=== PATIENT | female | born 1995 | race Caucasian/White ===

== ENCOUNTER 2020-07-24 17:29 | Emergency (ER) | payer MEDICAID, SELFPAY ==
[2020-07-24 17:33] VITALS: BP 138/78; PULSE 97; RESP 20; TEMP 36.8; O2SAT 97; BMI 25.9
--- NOTE | 2020-07-24 17:37 | EDS_ITS ---
HPI History of Present Illness Chief Complaint: Seizure Informant: patient Narrative Narrative: Patient presents after having a seizure. This occurred earlier in the day today. She has a known history of seizures. She is on Keppra, 500 mg twice daily. She states that she has been getting plenty of sleep and does not know any known triggers. She has been medication compliant. She had a seizure last about a year ago when she was about 4 months . She currently complains of a mild headache and some left-sided neck discomfort. She denies any chest pain, shortness of breath or abdominal pain. [facility] Medical History (Updated 07/24/20 @ 18:[address] Gabe Cordero MD) Anxiety Depression Seizures Home Medications levetiracetam 500 mg PO BID 07/24/20 [History Last Taken Unknown] sertraline 100 mg PO DAILY 07/24/20 [History Last Taken Unknown] Allergy/AdvReac Type Severity Reaction Status Date / Time amoxicillin Allergy Hives Verified 07/24/20 17:31 Iodinated Contrast Media Allergy Nausea/Vom/ Verified 07/24/20 17:31 Diarrhea Penicillins Allergy Hives Verified 07/24/20 17:31 Social History Smoking Status: Current every day smoker tobacco type: cigarettes ROS ROS ED Constitutional Constitutional ED: Denies chills or fever(s) Eyes Eyes: Denies blurry vision, change in vision or diplopia ENT ENT ED: Denies ear pain, rhinorrhea or sore throat Cardiovascular Cardiovascular: Denies chest pain or palpitations Respiratory/Chest Respiratory/Chest: Denies cough, dyspnea or sputum Gastrointestinal Gastrointestinal: Denies abdominal pain, diarrhea, nausea or vomiting Genitourinary Genitourinary ED: Denies dysuria, hematuria or urinary frequency Musculoskeletal Musculoskeletal: Denies back pain or neck pain Integumentary Denies change in pigmentation or rash Neurologic Neurologic: Reports other Details: Seizure Psychiatric Psychiatric: Denies anxiety or depression Endocrine Endocrinology: Denies polydipsia or polyuria EXAM Physical Exam Const Vital Signs: 07/24/20 17:33 Temperature 98.3 F Temperature Source Oral Pulse Rate 97 Respiratory Rate 20 H Blood Pressure 138/78 H Blood Pressure Mean 98 Pulse Ox 97 Oxygen Delivery Method Room Air Positive well nourished and well developed General Appearance ED: well developed and NAD HEENT Reports moist mucous membranes normocephalic and atraumatic; Negative for tenderness Eyes PERRL and EOMs intact bilaterally Neck supple and no JVD Chest Wall Chest: Negative for tenderness Resp normal respiratory effort and clear to auscultation bilaterally Effort and Inspection: Negative for respiratory distress Cardio regular rate, regular rhythm and no murmurs Rate: regular rate Rhythm: regular rhythm GI soft to palpation, non-tender and non-distended Palpation: soft Back/Spine no CVA tenderness and no thoracic nor lumbar tenderness Cervical Spine: Negative for cervical spine tenderness Extremity normal to inspection and full ROM General Extremety ED: Negative for tenderness Neuro oriented x3, CN's II-XII intact bilaterally and no sensory deficits noted Sensorium / Orientation: awake and alert Motor Exam: strength 5/5 throughout Psych mental status grossly normal Skin no rashes or lesions noted STROKE Vital Signs/Narrative: Vital Signs Temp Pulse Resp BP Pulse Ox 07/24/20 17:33 98.3 F 97 20 H 138/78 H 97 MDM MDM MDM Narrative Medical decision making narrative: The patient's neurologic exam is normal. I did give her an extra dose of her Keppra. I checked a Keppra level but it is a send out test. Patient will continue her home medication regimen. I do not feel she requires need for laboratory studies. Tylenol help with her headache. She is to call her doctor for follow-up Discharge Plan Triage Chief Complaint: Seizure ED Provider: Gabe Cordero Dx/Rx/DC Orders Clinical Impression: Breakthrough seizure Instructions: ED Seizure, Recurrent (Adult) Prescriptions: No Action levetiracetam 500 mg tablet 500 mg PO BID RF: 0 sertraline 100 mg tablet 100 mg PO DAILY RF: 0 Primary Care Provider: Jones Murry Referrals: Jones Murry MD [Primary Care Provider] - Disposition Disposition: Home, self care
[2020-07-24] MEDS: Acetaminophen 500 MG Tablet 1000 MG PO (17:58)
[2020-07-24] MEDS: levETIRAcetam 500 MG Tablet PO (18:40)
[2020-07-24 18:41] VITALS: BP 119/80; PULSE 78; RESP 16; O2SAT 97
[2020-07-29 14:17] LABS: KEPPRA (LEVETIRACETAM) 8.6 ug/mL (10.0-40.0)
== END 2020-07-24 18:41 | disposition home or self-care (01) ==
PROVIDERS: Emergency Provider Emergency Medicine; PCP Family Medicine
DX: G40.909 Epilepsy, unspecified, not intractable, without status epilepticus (principal); F17.210 Nicotine dependence, cigarettes, uncomplicated; F32.9 Major depressive disorder, single episode, unspecified; Z79.899 Other long term (current) drug therapy
CPT/HCPCS: 80177; 99285

== ENCOUNTER → 2023-07-31 | Outpatient (CLI) | payer MEDICAID, SELFPAY ==
--- NOTE | 2023-07-31 12:33 | VDLE_ITS ---
Reason For Study: Left leg pain RIGHT LEFT CFV is compressible, spontaneous, phasic, GSV is normal. competent and demonstrates normal CFV is compressible, spontaneous, phasic, augmentation. competent, and demonstrates normal Procedure augmentation. This is a venous duplex using B-mode, color FV is compressible, spontaneous, phasic, flow and spectral Doppler. competent and demonstrates normal Exam performed in department. augmentation. A preliminary report was called and/or faxed POP V is compressible, spontaneous, phasic, to Dr. Arriaga. competent and demonstrates normal augmentation. T/P Trunk is compressible. PTV is compressible. LT PerV is compressible. VL/Venous Duplex US, Unilateral Interpretation Summary Deep veins of the left lower extremity are patent and compressible segmentally. There is no evidence of left lower extremity deep vein thrombosis. Valvular competence appears intac t within the proximal deep venous system on the left . The left great saphenous vein appears patent a nd compressible segmentally. The right common femoral vein is patent and compressible . Ordering Physician: Junior Arriaga Referring Physician: Jones Murry Performed By: Rosalba Browne RVVeronique
== END | disposition home or self-care (01) ==
PROVIDERS: PCP Family Medicine; Referring Provider Obstetrics & Gynecology; Visit Provider Obstetrics & Gynecology
DX: O99.891 Other specified diseases and conditions complicating pregnancy (principal); M79.605 Pain in left leg; Z3A.30 30 weeks gestation of pregnancy
CPT/HCPCS: 93971

== ENCOUNTER 2023-08-29 21:34 | Outpatient (CLI) | payer MEDICAID, SELFPAY ==
[2023-08-29 21:50] VITALS: PULSE 93; O2SAT 97
[2023-08-29 21:51] VITALS: BP 123/71; PULSE 89; RESP 18; TEMP 36.6
[2023-08-29 22:02] VITALS: BMI 30.2
[2023-08-29] MEDS: Lactated Ringers 1,000 ML 999 ML IV (22:35)
[2023-08-29 22:45] LABS: Color, Urine Straw (Yellow); Glucose, Dipstick Normal (Normal); Ketone-Dipstick Negative (Negative); Leukocyte Esterase-Dipstick 100 /ul (Negative); Nitrite-Dipstick Negative (Negative); Occult Blood-Urine Negative /ul (Negative); Protein-Dipstick Negative (Negative); Urine Bilirubin Dipstick Negative (Negative); Urine Clarity Clear (Clear); Urine Urobilinogen 1 mg/dl (Normal); Urine pH 6.5 (5.0 - 8.0)
--- NOTE | 2023-08-30 08:17 | OB.TRI.NOTE ---
HPI - General HPI Narrative WELLINGTON CARROLL, is a 28 F who presents with contractions that started earlier in the day. Positive movement. Denies any loss of fluid or vaginal bleeding. Maternal Data Information INDIGO Calculator Estimated Delivery Date Method Current WG Current Estimate 10/06/23 Manual 34w 5d PFSH PFS Medical History (Updated 08/30/23 @ 08:25 by Nohelia Salmon CNM) Anxiety Depression Home Medications ?Medication ?Instructions ?Recorded ?Last Taken ?Type levetiracetam 500 mg tablet 750 mg PO BID seizures 07/24/20 08/29/23 History sertraline 100 mg tablet 100 mg PO DAILY 07/24/20 Unknown History folic acid 1 mg tablet 1 mg PO DAILY 08/29/23 08/29/23 History vit no.95-ferrous 1 tab PO DAILY 08/29/23 Unknown History fumarate 28 mg-folic acid 800 mcg tablet () Allergy/AdvReac Type Severity Reaction Status Date / Time amoxicillin Allergy Hives Verified 08/29/23 22:05 Iodinated Contrast Media Allergy Nausea/Vom/ Verified 08/29/23 22:05 Diarrhea Penicillins Allergy Hives Verified 08/29/23 22:05 Social History Smoking Status: Current every day smoker tobacco type: cigarettes Physical Exam Const alert and no apparent distress General Appearance: cooperative Orientation / Consciousness: awake Exam Limitations: no limitations HEENT normocephalic Eyes General Eye: normal appearance of both eyes Neck full ROM Chest inspection of chest normal Resp normal respiratory effort and normal air movement Effort and Inspection: symmetric chest movement Auscultation: clear to auscultation bilaterally Cardio regular rate GI soft to palpation, non-tender and non-distended Inspection: and other Back/Spine normal ROM Extremity full ROM, normal capillary refill and no calf tenderness Skin no rashes or lesions noted Neuro oriented x3 and CN's II-XII intact bilaterally Psych mental status grossly normal Assessment & Plan (1) 34 weeks gestation of : (2) Uterine contractions: (3) Seizures: (4) Depression: (5) Anxiety: (6) contractions: PLAN: Plan NST reactive Start IV and give LR 1000 cc bolus UA- NEGATIVE No regular contractions via TOCO- occasional contraction that palpates mild CE - 1 cm- unchanged after extended monitoring D/C home with follow up in office this week
== END 2023-08-29 23:48 | disposition home or self-care (01) ==
LOC: WPOUT 21:41 → WP 21:42
PROVIDERS: PCP Family Medicine; Referring Provider Advanced Practice Midwife; Visit Provider Advanced Practice Midwife
DX: O47.03 False labor before 37 completed weeks of gestation, third trimester (principal); R56.9 Unspecified convulsions; F17.210 Nicotine dependence, cigarettes, uncomplicated; O99.891 Other specified diseases and conditions complicating pregnancy; Z3A.34 34 weeks gestation of pregnancy; O99.333 Smoking (tobacco) complicating pregnancy, third trimester
CPT/HCPCS: 96360; 59025; 59050; 81002; 99221; J7120; G0378